=== PATIENT | male | born 1990 | race Caucasian/White ===

== ENCOUNTER 2016-06-22 15:35 | Emergency (ER) | payer BC ==
[2016-06-22 15:53] VITALS: BP 142/84; PULSE 93; RESP 18; TEMP 98.6; O2SAT 93
--- NOTE | 2016-06-22 17:23 | UCPHY ---
H & P Time Seen by Provider: 06/22/16 16:33 Patient Type: New HPI/ROS: CHIEF COMPLAINT: Sore throat HISTORY OF PRESENT ILLNESS: The patient is a 25-year-old male presenting with multiple systems symptoms. The patient reports symptoms of sore throat, ear pain , and left eye redness for the past 48 hours. He states his sore throat is gets worse throughout the day. Pain is worse with swallowing, but there is no cough. He complains of mild left ear pain. He also states his left eye is red and swollen with some drainage. He denies visual changes. No fever, nausea, vomiting , or diarrhea. REVIEW OF SYSTEMS: Constitutional: No fever, no chills. Eyes: No diplopia. Left eye discharge and redness. ENT: Sore throat, mild. Cardiovascular: No chest pain, no palpitations. Respiratory: No cough, shortness of breath, or wheezing. Gastrointestinal: No nausea vomiting or diarrhea. No abdominal pain. Skin: No rashes. Past Medical/Surgical History: Denies. Social History: No recent alcohol. Smoking Status: Current every day smoker Physical Exam: General Appearance: Alert, no distress. Afebrile. Normal phonation. No respiratory distress. Eyes: Left eye with conjunctiva. ia. ENT, Mouth: Mucous membranes moist. Ears: Left ear with some redness in canal. Throat: Pharyngeal erythema, no hemorrhage or petechia. Neck: No adenopathy. Supple. No JVD. Trachea in midline. Respiratory: There are no retractions, lungs are clear to auscultation. Cardiovascular: Regular rate and rhythm. Abdomen: Soft and nontender. Skin: Warm and dry, no rashes. Psychiatric: Normal affect. Patient is oriented X 3, there is no agitation. Constitutional: Initial Vital Signs Temperature (C) 37 C 06/22/16 15:51 Heart Rate 93 06/22/16 15:51 Respiratory Rate 18 06/22/16 15:51 Blood Pressure 142/84 H 06/22/16 15:51 O2 Sat (%) 93 06/22/16 15:51 O2 Delivery Mode Room Air Allergies/Adverse Reactions: No Known Allergies Allergy (Verified 06/22/16 15:50) Home Medications: Medication Instructions Recorded NK [No Known Home Meds] 06/22/16 Medical Decision Making ED Course/Re-evaluation: The patient presents with multiple viral complaints including sore throat, left eye redness, and left ear pain. On exam patient has some tonsillar erythema. His left eye has conjunctiva. A strep swab was sent. The patient is afebrile. Patient has negative strep swab. I suspect his symptoms are viral and do not require antibiotics, including the viral conjunctivitis. Differential Diagnosis: Diagnostic considerations include, but are not limited to, the following: URI, sinusitis, pharyngitis, otitis media, pneumonia, allergy, influenza, conjunctivitis - Data Points Laboratory Results: 06/22/16 06/22/16 Unknown 15:55 Group A Strep Screen NEGATIVE (NEGATIVE) Group A Strep DNA Pending Departure - Departure Disposition: Home, Routine, Self-Care Clinical Impression: Conjunctivitis, viral Pharyngitis Qualifiers: Pharyngitis/tonsillitis etiology: unspecified etiology Qualified Code(s): J02.9 - Acute pharyngitis, unspecified Condition: Good Instructions: Pharyngitis (ED), Conjunctivitis (ED) Additional Instructions: Drink plenty of fluids. Adult Pain & Fever Control: We recommend Acetaminophen (Tylenol) and Ibuprofen (Motrin,Advil) for pain and fever control. When fever is high or pain severe, both drugs can be used at the same time, but at different intervals. Please note the time differences. Your dose is: Acetaminophen 650mg every 4 to 6 hours Ibuprofen 600mg every 6 to 8 hours with food Note: do not take Acetaminophen with Hydrocodone (Vicodin, Lortab) or Oxycodone (Percocet). These medications also contain Acetaminophen. No more than 3000mg of Acetaminophen should be taken in 24 hours (for an adult). Followup with your primary care physician if symptoms persist. Referrals: Bari Barbosa MD [Medical Doctor] - As per Instructions [facility],. [Clinic] - As per Instructions Stand Alone Forms: Work Excuse - PQRS PQRS Measurement: NA Report Scribed for: Anthony Corrigan Report Scribed by: Kate Tariq Date of Report: 06/22/16 Time of Report: 17:27
== END 2016-06-22 17:36 | disposition home or self-care (01) ==
LOC: CED 15:35
DX: J02.9 Acute pharyngitis, unspecified (principal); H10.9 Unspecified conjunctivitis; Z72.0 Tobacco use
CPT/HCPCS: 87880-PO; 99203-PO; G0463-PO